=== PATIENT | male | born 1960 | race Caucasian/White ===

== ENCOUNTER → 2018-02-08 | Outpatient (CLI) | payer OTHER | END | disposition home or self-care (01) | LOC: CVU 15:27 | PROVIDERS: ATTEND Nurse Practitioner Primary Care | DX: I34.0 Nonrheumatic mitral (valve) insufficiency (principal); E55.9 Vitamin D deficiency, unspecified; E78.2 Mixed hyperlipidemia; G89.29 Other chronic pain; M25.50 Pain in unspecified joint; Z82.61 Family history of arthritis; Z79.899 Other long term (current) drug therapy | CPT/HCPCS: 93306 ==

== ENCOUNTER → 2018-02-14 | Outpatient (CLI) | payer OTHER | END | disposition home or self-care (01) | LOC: CFH 16:31 | PROVIDERS: ATTEND Nurse Practitioner Primary Care | DX: M51.36 Other intervertebral disc degeneration, lumbar region (principal); E78.2 Mixed hyperlipidemia; E55.9 Vitamin D deficiency, unspecified; G89.29 Other chronic pain; R01.1 Cardiac murmur, unspecified; R94.39 Abnormal result of other cardiovascular function study; Z82.61 Family history of arthritis; Z79.899 Other long term (current) drug therapy | CPT/HCPCS: 72100 ==